=== PATIENT | female | born 1965 | race Caucasian/White ===

== ENCOUNTER 2020-03-26 12:18 | Emergency (ER) | payer MEDICARE, MEDICAID, SELFPAY ==
[2020-03-26 12:28] VITALS: BP 131/77; PULSE 66; RESP 14; TEMP 36.4; O2SAT 100; BMI 26.6
--- NOTE | 2020-03-26 12:35 | PC.NURSE ---
C-Collar applied on patient.
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
== END 2020-03-26 14:42 | disposition home or self-care (01) ==
PROVIDERS: Emergency Provider Nurse Practitioner Family; PCP Nurse Practitioner Family
DX: S16.1XXA Strain of muscle, fascia and tendon at neck level, initial encounter (principal); Z87.891 Personal history of nicotine dependence; V89.2XXA Person injured in unspecified motor-vehicle accident, traffic, initial encounter
CPT/HCPCS: 12345; 72125; 72128; 99281; 99283

== ENCOUNTER → 2020-05-22 15:42 | Outpatient (BNVA) | payer MEDICARE, SELFPAY | PROVIDERS: Family Provider Family Medicine; PCP Family Medicine; Visit Provider Family Medicine | DX: Z13.6 Encounter for screening for cardiovascular disorders (principal); Z13.1 Encounter for screening for diabetes mellitus; M54.2 Cervicalgia; M48.02 Spinal stenosis, cervical region; E78.2 Mixed hyperlipidemia; F41.9 Anxiety disorder, unspecified | CPT/HCPCS: 80053; 80061 ==

== ENCOUNTER 2020-05-28 16:03 | Outpatient (CLI) | payer MEDICARE, MEDICAID, SELFPAY ==
--- NOTE | 2020-05-28 16:45 | MR_ITS ---
WS: [id number] MRI CERVICAL SPINE NONCONTRAST TECHNIQUE: Sagittal T1, T2 and STIR imaging. Axial T2, gradient, and fiesta imaging. CLINICAL INFORMATION: M54.2 - Cervicalgia COMPARISON: None. FINDINGS: Straightening of the normal cervical lordosis. Chiari I malformation with cerebellar tonsils approxim ately 15 mm below the foramen magnum. Mild crowding at the craniocervical junction. Normal fourth navin tricle. C2-C3: Mild left and no significant right foraminal narrowing. Spinal canal is patent. C3-C4: Mild disc osteophytic ridging. Mild left and no significant right foraminal narrowing. Mild fa cet arthropathy. Spinal canal is patent. C4-C5: Mild disc osteophyte complex. Tiny central protrusion. Mild to moderate left and no significan t right foraminal narrowing. Mild facet arthropathy. Spinal canal is patent. C5-C6: Small left pericentral disc protrusion. Slight contact of the ventral cervical cord. Moderate left and mild right foraminal narrowing. Mild facet arthropathy. C6-C7: Mild disc osteophyte complex with mild central canal stenosis. Moderate left and mild right fo raminal narrowing. C7-T1: Mild left and no significant right foraminal narrowing. Spinal canal is patent. Visualized brain stem structures: Normal. Prevertebral soft tissues: Normal. MR/MR cervical spin wo con* [id number] IMPRESSION: 1. Chiari I malformation with cerebellar tonsils approximately 15 mm below the foramen magnum. Crowding at the craniocervical junction. Fourth ventricle appe ars normal. Recommend MRI of the head without gadolinium enhancement to evaluat e ventricular system. 2. Straightening of the normal cervical lordosis. Cord signal is normal. 3. Small left pericentral protrusion C5-C6 with mild central canal stenosis. M ild central canal stenosis C6-7. 4. Multilevel moderate bony foraminal narrowing worse at left C3-C4, left C4-C 5, left C5-C6 and left C6-C7.
== END 2020-05-28 16:04 | disposition home or self-care (01) ==
LOC: RADSHAW 16:10
PROVIDERS: PCP Family Medicine; Visit Provider Family Medicine
DX: M50.222 Other cervical disc displacement at C5-C6 level (principal); G93.5 Compression of brain
CPT/HCPCS: 72141

== ENCOUNTER → 2020-07-10 15:40 | Outpatient (BNVA) | payer MEDICARE, MEDICAID, SELFPAY | PROVIDERS: PCP Family Medicine; Referring Provider Family Medicine; Visit Provider Orthopaedic Surgery | DX: M48.02 Spinal stenosis, cervical region (principal); M54.2 Cervicalgia; M47.812 Spondylosis without myelopathy or radiculopathy, cervical region | CPT/HCPCS: 72050 ==

== ENCOUNTER → 2020-08-03 14:54 | Outpatient (BNVA) | payer MEDICARE, MEDICAID, SELFPAY | PROVIDERS: PCP Family Medicine; Visit Provider Nurse Practitioner Family | DX: S82.839A Other fracture of upper and lower end of unspecified fibula, initial encounter for closed fracture (principal); M25.572 Pain in left ankle and joints of left foot; X58.XXXA Exposure to other specified factors, initial encounter | CPT/HCPCS: 73610 ==

== ENCOUNTER → 2020-08-10 10:42 | Outpatient (BNVA) | payer MEDICARE, MEDICAID, SELFPAY | PROVIDERS: PCP Family Medicine; Visit Provider Orthopaedic Surgery | DX: S82.839A Other fracture of upper and lower end of unspecified fibula, initial encounter for closed fracture (principal); S82.53XA Displaced fracture of medial malleolus of unspecified tibia, initial encounter for closed fracture; X58.XXXA Exposure to other specified factors, initial encounter | CPT/HCPCS: 73590; 73610 ==

== ENCOUNTER → 2020-09-06 14:55 | Outpatient (BNVA) | payer MEDICARE, MEDICAID, SELFPAY | PROVIDERS: PCP Family Medicine; Visit Provider Orthopaedic Surgery | DX: S82.839A Other fracture of upper and lower end of unspecified fibula, initial encounter for closed fracture (principal); S82.53XA Displaced fracture of medial malleolus of unspecified tibia, initial encounter for closed fracture; X58.XXXA Exposure to other specified factors, initial encounter | CPT/HCPCS: 73590 ==

== ENCOUNTER → 2022-11-12 14:48 | Outpatient (BNVA) | payer MEDICARE, MEDICAID, SELFPAY | PROVIDERS: PCP Family Medicine; Visit Provider Family Medicine | DX: R53.83 Other fatigue (principal); N95.1 Menopausal and female climacteric states; E78.2 Mixed hyperlipidemia | CPT/HCPCS: 80053; 80061; 83001; 83002; 84443; 85025 ==